=== PATIENT | male | born 1965 | race Caucasian/White ===

== ENCOUNTER → 2021-08-30 | Outpatient (CLI) | payer OTHER ==
[~2021-08-30] MED LIST: Amlodipine Besyl5 MG PO; Prozac20 MG; Zolpidem Tartra10 MG PO
== END | disposition home or self-care (01) ==
LOC: LAB SHORT 18:56 → LAB 18:56
DX: I10 Essential (primary) hypertension (principal)
CPT/HCPCS: 82043

== ENCOUNTER 2024-04-11 02:12 | Observation (INO) | payer OTHER ==
[~2024-04-11] VITALS: Ht 177.8 cm; Wt 119.7 kg
[2024-04-11] VITALS (41 sets, daily range): BP systolic 103–142; BP diastolic 66–95
[2024-04-11 02:28] LABS: BASOPHILS ABSOLUTE AUTO 0.07 K/mm3 (0.00-0.23); BASOPHILS PERCENT AUTO 1 % (0-2); EOSINOPHILS ABSOLUTE AUTO 0.24 K/mm3 (0.00-0.68); EOSINOPHILS PERCENT AUTO 2 % (0-6); Hematocrit 42.2 % (37.0-53.0); Hemoglobin 14.9 g/dL (13.5-17.5); IMMATURE GRAN ABSOLUTE AUTO 0.04 K/mm3 (0.00-0.10); IMMATURE GRAN PERCENT AUTO 0 % (0-1); LYMPHOCYTES ABSOLUTE AUTO 4.33 K/mm3 (0.84-5.20); LYMPHOCYTES PERCENT AUTO 34 % (21-46); MONOCYTES ABSOLUTE AUTO 0.95 K/mm3 (0.16-1.47); MONOCYTES PERCENT AUTO 7 % (4-13); Mean Corpuscular HGB 30.6 pg (26.0-34.0); Mean Corpuscular HGB Conc 35.3 g/dL (31.5-36.5); Mean Corpuscular Volume 87 fL (80-100); Mean Platelet Volume 9.3 fL (9.1-12.4); NEUTROPHILS ABSOLUTE AUTO 7.26 K/mm3 (1.96-9.15); NEUTROPHILS PERCENT AUTO 56 % (41-73); Platelet Count 263 K/mm3 (150-400); RDW Coefficient Variation 13.1 % (11.7-14.2); RDW Standard Deviation 41.2 fL (35.1-46.3); Red Blood Cell Count 4.87 M/mm3 (4.30-5.90); White Blood Cell Count 12.89 K/mm3 (4.00-11.30)
[2024-04-11] MEDS ORDERED: Verapamil HCL 2.5 MG/ML 2ML Injection ONE (02:38)
[2024-04-11] MEDS ORDERED: FentaNYL Citrate 50 MCG/ML 2 ML Injection ONE (02:38)
[2024-04-11] MEDS ORDERED: Midazolam HCl 1MG / ML 2ML Vial ONE (02:38)
[2024-04-11] MEDS ORDERED: Nitroglycerin 2 MG/20 ML BTL ONE (02:39)
[2024-04-11] MEDS ORDERED: NS 250 ML IV ONE (02:39)
[2024-04-11] MEDS ORDERED: NiCARdipine HCL 1,000 MCG/5 ML SYR ONE (02:39)
[2024-04-11] MEDS ORDERED: Heparin Sodium 1000 Units/ML 10ML MDV ONE ×2 (02:39→03:12)
[2024-04-11] MEDS ORDERED: NS 1,000 ML IV ONE ×2 (02:39→02:45)
[2024-04-11] MEDS ORDERED: Potassium Chloride 20 MEQ/15 ML UDC PO ONE (02:40)
[2024-04-11 02:41] LABS: International Normalized Ratio 1.09; Prothrombin Time Results 11.6 Sec (9.7-11.5)
[2024-04-11 02:46] LABS: Albumin, Blood 3.7 g/dL (3.4-5.0); Bilirubin, Total 0.6 mg/dL (0.1-1.0); Bun/Creatinine Ratio 17.1 (12.0-20.0); Calcium, Blood 9.5 mg/dL (8.5-10.1); Creatinine, Blood 0.94 mg/dL (0.60-1.20); Globulin, Blood 3.7 g/dL (2.2-4.0); Total Protein, Blood 7.4 g/dL (6.4-8.2)
[2024-04-11] MEDS ORDERED: Atropine Sulfate 0.1 MG/ML 10ML SYR ONE (02:59)
[2024-04-11] MEDS ORDERED: Phenylephrine HCl 100 MCG/ML-NS 10MLSYR (1MG/10ML) ONE (02:59)
[2024-04-11] MEDS ORDERED: Ondansetron HCl 2 MG / ML 2ML Vial IV PRN (03:10)
[2024-04-11 03:55] LABS: BASOPHILS ABSOLUTE AUTO 0.04 K/mm3 (0.00-0.23); BASOPHILS PERCENT AUTO 0 % (0-2); EOSINOPHILS ABSOLUTE AUTO 0.08 K/mm3 (0.00-0.68); EOSINOPHILS PERCENT AUTO 1 % (0-6); Hematocrit 44.2 % (37.0-53.0); Hemoglobin 15.1 g/dL (13.5-17.5); IMMATURE GRAN ABSOLUTE AUTO 0.04 K/mm3 (0.00-0.10); IMMATURE GRAN PERCENT AUTO 0 % (0-1); LYMPHOCYTES ABSOLUTE AUTO 1.46 K/mm3 (0.84-5.20); LYMPHOCYTES PERCENT AUTO 14 % (21-46); MONOCYTES ABSOLUTE AUTO 0.64 K/mm3 (0.16-1.47); MONOCYTES PERCENT AUTO 6 % (4-13); Mean Corpuscular HGB 30.6 pg (26.0-34.0); Mean Corpuscular HGB Conc 34.2 g/dL (31.5-36.5); Mean Corpuscular Volume 90 fL (80-100); Mean Platelet Volume 9.8 fL (9.1-12.4); NEUTROPHILS ABSOLUTE AUTO 8.53 K/mm3 (1.96-9.15); NEUTROPHILS PERCENT AUTO 79 % (41-73); Platelet Count 218 K/mm3 (150-400); RDW Coefficient Variation 13.2 % (11.7-14.2); RDW Standard Deviation 43.2 fL (35.1-46.3); Red Blood Cell Count 4.94 M/mm3 (4.30-5.90); White Blood Cell Count 10.79 K/mm3 (4.00-11.30)
[2024-04-11 04:15] LABS: Albumin, Blood 3.7 g/dL (3.4-5.0); Bilirubin, Total 0.7 mg/dL (0.1-1.0); Bun/Creatinine Ratio 17.1 (12.0-20.0); Calcium, Blood 9.2 mg/dL (8.5-10.1); Creatinine, Blood 0.88 mg/dL (0.60-1.20); Globulin, Blood 3.8 g/dL (2.2-4.0); Potassium, Blood 3.4 mmol/L (3.5-5.5); Total Protein, Blood 7.5 g/dL (6.4-8.2)
[2024-04-11] MEDS ORDERED: Potassium Chloride 40 MEQ in NS 250 ML IV ONE (04:35)
--- NOTE | 2024-04-11 04:43 | NUR ---
ARRIVAL TO ICU PT A/O X 4. DENIES CHEST PAIN OR CHEST PRESSURE. VSS. RA. SR RATE 70'S. TR BAND TO RIGHT RADIAL. MINIMAL BRUISING AND NO S/S OF ACTIVE BLEEDING OR HEMATOMA. PT EDUCATED ON KEEPING WRIST STRAIGHT AND NOT BENDING OR PULLING WITH THAT ARM. ALSO EDUCATED ON CALLING FOR ANY CHEST PAIN, PRESSURE, AND SOB. AND CHILDREN AT BEDSIDE. FAMILY STATES THEY WILL BRING IN PT MEDICATIONS IN AM. DECLINES NICOTINE REPLACEMENT AT THIS TIME. CALL LIGHT IN REACH.
[2024-04-11] MEDS ORDERED: NS 250 ML IV PRN (05:20)
[2024-04-11] MEDS ORDERED: Heparin Sodium,Porcine 5,000 UNIT/0.5 ML SDV SC ONE (06:32)
[2024-04-11] MEDS ORDERED: Ticagrelor 90 MG TABLET PO ONE (06:32)
[2024-04-11] MEDS ORDERED: HYDPAM25 PO (06:37)
[2024-04-11] MEDS ORDERED: DOXA4 PO (06:37)
--- NOTE | 2024-04-11 07:15 | NUR ---
ASSUMPTION OF CARE: ASSUMED CARE OF PATIENT. PATIENT RESTING QUIETLY IN BED WITH FAMILY AT BEDSIDE. REPORTS SOME STERNAL TENDERNESS, BUT OTHERWISE DENIES CHEST PAIN, SHORTNESS OF BREATH OR NUMBNESS/TINGLING IN EXTREMITIES. TR BAND IN PLACE WITH SCANT STABLE BLOOD AT INSERTION SITE. 2ML LEFT IN TR BAND. VITALS STABLE WITH MAPS >65. HR IN THE 60S. PATIENT REPORTS FATIGUE FROM LACK OF SLEEP. PATIENT IS STILL DUE TO VOID.
[2024-04-11] MEDS ORDERED: Ticagrelor 90 MG TABLET PO SCH (08:00)
[2024-04-11] MEDS ORDERED: Atorvastatin 40 MG Tab PO SCH (09:00)
[2024-04-11] MEDS ORDERED: Aspirin 81 MG Chew PO SCH (09:00)
[2024-04-11] MEDS ORDERED: FLUoxetine HCL 20 MG CAP PO SCH (09:00)
[2024-04-11] MEDS ORDERED: Zolpidem Tartrate 10 MG Tab PO PRN (09:25)
[2024-04-11 12:28] LABS: Bun/Creatinine Ratio 21.2 (12.0-20.0); Calcium, Blood 9.2 mg/dL (8.5-10.1); Creatinine, Blood 0.76 mg/dL (0.60-1.20); Magnesium, Blood 2.3 mg/dL (1.6-2.4); Potassium, Blood 4.3 mmol/L (3.5-5.5)
[2024-04-11] MEDS ORDERED: Enoxaparin 40 MG/0.4 ML SYR SC SCH (15:25)
--- NOTE | 2024-04-11 18:00 | NUR ---
SHIFT SUMMARY: NEURO: PATIENT ALERT AND ORIENTED X4 THROUGHOUT THE SHIFT. PATIENT DENIED NUMBNESS/TINGLING IN ALL EXTREMITIES. PATIENT REPORTED HIGH LEVELS OF FATIGUE RELATED TO DIAGNOSIS AND LACK OF SLEEP. PATIENT REPORTS TAKING AMBIEN AT HOME. DISCUSSED WITH DR. VIERA - KANDI AMBROCIO. PATIENT ABLE TO STAND AT BEDSIDE TO VOID. DENIED DIZZINESS OR SHORTNESS OF BREATH, BUT REPORTED THAT HE WAS TOO TIRED FOR ANY MORE ACTIVITY. CARDIAC: PATIENT DENIED CHEST PAIN OR PRESSURE THROUGHOUT THE SHIFT. VITAL SIGNS STABLE WITH MAPS >65. PATIENT STARTED THE SHIFT IN NORMAL SINUS. DURING AND AFTER NAPPING IN THE AM, PATIENT WAS SINUS ALEX WITH RATE IN THE MID 50S - LOW 60S. TR BAND RECOVERED IN THE AM. NO BLEEDING OR HEMATOMA FORMATION AT THE END OF RELEASING AIR OR AFTER BAND WAS REMOVED. PATIENT FOLLOWING WRIST AND ARM RESTRICTIONS. RESPIRATORY: PATIENT DENIED SHORTNESS OF BREATH THROUGHOUT THE SHIFT. PATIENT STABLE ON ROOM AIR WITH SPO2 >92%. GI/: PATIENT REPORTED LACK OF APPETITE. PATIENT TOLERATING PO INTAKE WITHOUT NAUSEA. PATIENT ABLE TO VOID. HOME BPH MEDICATION ORDERED. PSYCHSOCIAL: PATIENT HAD FAMILY AT BEDSIDE THROUGHOUT THE SHIFT. THEY ARE SUPPORTIVE AND ENCOURAGING OF THE PATIENT.
--- NOTE | 2024-04-11 20:12 | NUR ---
PATIENT HEART CATH SITE OF RT. WRIST DRY AND INTACT. NO ECCHYMOSIS NOTED AT PRESENT TIME. WRIST SPLINT LEFT IN PLACE, PATIENT EDUCATED TO INFORM STAFF IF BLEEDING OCCURS OR FINGER/HAND STARTS TO FEEL SWOLLEN OR SORE.
[2024-04-12] VITALS: BP 130/83
[2024-04-12] MEDS ORDERED: TraZODone HCl 50 MG Tab PO ONE (01:05)
--- NOTE | 2024-04-12 01:16 | NUR ---
PATIENT REQUESTING SOMETHING ELSE FOR SLEEP. UNABLE TO SLEEP DEEPLY DESPITE RECEIVING AMBIEN 10MG EARLIER IN SHIFT. DR. RALPH CALLED AND NEW ORDERS NOTED FOR TRAZADONE PO. MEDICATED AND AWAITING RESULTS.
[2024-04-12 02:00] VITALS: BP 103/66
[2024-04-12 04:03] VITALS: BP 148/101
[2024-04-12 06:07] VITALS: BP 129/86
[2024-04-12 07:47] VITALS: BP 146/91
--- NOTE | 2024-04-12 08:00 | NUR ---
INITIAL ASSESSMENT PATIENT ALERT AND ORIENTED X 4, AFEBRILE. PATIENT DENIES PAIN/ DISCOMFORT INCLUDING CHEST PAIN OR PRESSURE. PATIENT SATTING 90% AND GREATER ON RA. PATIENT IN SB TO SR, HR 50S TO 60S. SBP IN THE 140S. PATIENT DOES NOT FEELING LIKE EATING BREAKFAST THIS AM. WNL. R RADIAL SITE WNL; NO BLEEDING, BRUISING, OR HEMATOMA NOTED. IVS FLUSHED AND SALINE LOCKED. BED LOW, CALL LIGHT IN REACH. CARE CONTINUES.
--- NOTE | 2024-04-12 08:30 | NUR ---
DR. CLARKE CONTACTED BY PHONE AND INFORMED THAT PATIENT TAKES CARDURA AT NIGHT TIME INSTEAD OF MORNING ORDERED IN [facility]. INFORMED OF AM VITALS. STATED OKAY TO CHANGE IT TO HOW HE TAKES AT HOME. DR. CLARKE STATED THAT PATIENT CAN GO HOME IF ASYMPTOMATIC AND FOLLOW UP WITH CARDIOLOGY IN 2 WEEKS TIME.
[2024-04-12] MEDS ORDERED: Doxazosin Mesylate 2 MG Tab PO SCH ×2 (09:00→21:00)
[2024-04-12] MEDS ORDERED: ATOR80 PO (10:49)
[2024-04-12] MEDS ORDERED: ASPI81CH PO (10:49)
[2024-04-12] MEDS ORDERED: TICA90TA PO (10:49)
[2024-04-12] MEDS ORDERED: TRAZ50 PO (10:50)
[2024-04-12 11:25] LABS: Calcium, Ionized (POC) 0.97 mmol/L (1.10-1.46); Chloride (POC) 108 mmol/L (98-108); Creatinine (POC) 1.1 mg/dL (0.8-1.3); Glucose (ISTAT POC) 152 mg/dL (70-99); Potassium (POC) 2.9 mmol/L (3.5-5.5); Sodium (POC) 140 mmol/L (135-148); Total CO2 (POC) 17 mmol/L (21-32)
--- NOTE | 2024-04-12 11:30 | NUR ---
SHIFT SUMMARY PATIENT REMAINED ALERT AND ORIENTED, AFEBRILE. VS REMAINS STABLE. PATIENT REMAINED SATTING 90% AND GREATER ON RA. R RADIAL SITE REMAINED WNL. PATIENT HAD NO COMPLAINTS OF PAIN, CP/ PRESSURE. IVS DC'D. ALL EDUCATION AND DISCHARGE INSTRUCTIONS GIVEN TO PATIENT, , AND TWO CHILDREN. PATIENT AND FAMILY STATED THAT THEY UNDERSTOOD ALL DIRECTIONS. PATIENT DC COMPLETE. ALL BELONGINGS SENT HOME WITH PATIENT.
[2024-04-12] MEDS ORDERED: TraZODone HCl 50 MG Tab PO PRN (21:00)
== END 2024-04-12 11:31 | disposition home or self-care (01) ==
LOC: ER 02:12 → ICUE 02:13 → ER 02:41 → ICUE 02:41
PROVIDERS: Emergency Medicine; Internal Medicine; ADMIT Internal Medicine
DX: I21.19 ST elevation (STEMI) myocardial infarction involving other coronary artery of inferior wall (principal); I25.118 Atherosclerotic heart disease of native coronary artery with other forms of angina pectoris; I25.5 Ischemic cardiomyopathy; I10 Essential (primary) hypertension; N40.0 Benign prostatic hyperplasia without lower urinary tract symptoms; E87.6 Hypokalemia; E78.5 Hyperlipidemia, unspecified; F32.9 Major depressive disorder, single episode, unspecified; E87.20 Acidosis, unspecified; G47.33 Obstructive sleep apnea (adult) (pediatric); Z72.0 Tobacco use; Z88.5 Allergy status to narcotic agent; Z88.0 Allergy status to penicillin
CPT/HCPCS: 36415; 71045; 76937; 80047; 80048; 80053; 83036; 83735; 83880; 84484; 85014; 85025; 85347; 85610; 86850; 86900; 86901; 92978; 93005; 93010; 93306; 93454; 96372; 96374; 99291-25; A9270; C1725; C1753; C1769; C1874; C1887; C1894; C9600; G0378; J0461; J1644; J1650; J2250; J2371; J3010; J3480; J7030; J7050; Q9967